=== PATIENT | female | born 1995 | race Two or more races ===

== ENCOUNTER 2021-08-03 18:47 | Emergency (ER) | payer MEDICAID ==
[~2021-08-03] VITALS: Ht 167.6 cm; Wt 72.6 kg
[2021-08-03 18:55] VITALS: BP 115/89
== END 2021-08-03 21:30 | disposition left against medical advice (07) ==
LOC: ER 18:47
DX: U07.1 COVID-19 (principal); R09.89 Other specified symptoms and signs involving the circulatory and respiratory systems; Z53.21 Procedure and treatment not carried out due to patient leaving prior to being seen by health care provider
CPT/HCPCS: 36415; 87426

== ENCOUNTER 2024-05-20 20:48 | Emergency (ER) | payer MEDICAID ==
[~2024-05-20] VITALS: Ht 167.6 cm; Wt 86.4 kg
[2024-05-20 21:04] VITALS: BP 125/65; PULSE 64; RESP 18; O2SAT 100
[2024-05-20 21:44] LABS: Urine Bacteria FEW /hpf (None Seen); Urine Blood Negative /uL (Negative); Urine Clarity Turbid (Clear); Urine Color Light-Yellow (Yellow); Urine Protein, UAD Negative (Negative); Urine Specific Gravity 1.019 (1.001-1.035); Urine Urobilinogen Normal (Negative); Urine WBC 31 /hpf (0 - 5)
== END 2024-05-21 02:39 | disposition left against medical advice (07) ==
LOC: ER 20:48
DX: O26.891 Other specified pregnancy related conditions, first trimester (principal); R10.30 Lower abdominal pain, unspecified; Z3A.12 12 weeks gestation of pregnancy
CPT/HCPCS: 81001; 81025

== ENCOUNTER 2024-09-26 19:06 | Observation (INO) | payer MEDICAID ==
[2024-09-26 20:21] LABS: Fern Testing Negative
--- NOTE | 2024-09-26 22:38 | DVH ---
LIMITED OB ULTRASOUND > 14 WKS: HISTORY: LEAKING OF FLUID TECHNIQUE: Multiple real-time grayscale images of the gravid uterus with duplex Doppler color flow an d M-mode spectral analysis. TRANSDUCER: Transabdominal FINDINGS: heart rate 147 beats per minute JOHNY 13.8 cm Cervix 3.24 cm Cephalic Presentation Anterior Grade 2 Placenta without previa or abruption. IMPRESSION: 1. JOHNY 13.8 cm 2. FHR: 147 bpm
--- NOTE | 2024-09-27 09:00 | DVHDS2 ---
Obstetrics Discharge Summary Obstetrics Discharge Summary Date of Admission: Sep 26, 2024 Date of Discharge: Sep 26, 2024 Reason For Admission: Observational/Evaluation ( Status), Others (rule out srom) Procedures: NST, Ultrasound Discharge Diagnosis: Others (reasuring heart tones, no leak) Discharge Information: Activity (pelvic rest), Diet (Other), Medications (None), Instructions (kick counts labor precautions), Discharge to (Home), Discarge date (09/26/2024) OLIVERIO RIVERA DO Sep 27, 2024 09:00
== END 2024-09-26 20:47 | disposition home or self-care (01) ==
LOC: LDRP 19:06
PROVIDERS: ADMIT Obstetrics & Gynecology; ATTEND Obstetrics & Gynecology
DX: O42.913 Preterm premature rupture of membranes, unspecified as to length of time between rupture and onset of labor, third trimester (principal); Z98.890 Other specified postprocedural states; Z79.899 Other long term (current) drug therapy; Z3A.31 31 weeks gestation of pregnancy
CPT/HCPCS: 59025; 76815; 81002; 84112; G0378; Q0114